=== PATIENT | female | born 1965 | race Caucasian/White ===

== ENCOUNTER 2023-04-25 21:52 | Inpatient (IN) | payer BC ==
[2023-04-25 23:15] LABS: #Monocytes 0.6 thou/uL (0.11-0.59); #Neutrophils 7.4 thou/uL (1.40-6.50); %Basophils 0.3 % (0.0-1.0); %Eosinophils 0.1 % (0.0-10.0); %Lymphocytes 10.7 % (21.0-51.0); %Neutrophils 81.5 % (42.0-75.0); Hematocrit 29.7 % (36.0-47.0); Hemoglobin 10.7 g/dL (12.0-16.0); Mean Corpuscular Hemoglobin 35.5 pg (27.0-31.0); Mean Corpuscular Volume 98.7 fl (78.0-98.0); Mean Platelet Volume 8.7 fL (7.4-10.4); Platelet Count 230 10x3/uL (130-400); RBC Distribution Width 12.8 % (11.5-14.5); Red Blood Cell (RBC) Count 3.01 mill/uL (4.20-5.40); White Blood Cell (WBC) Count 9.1 10x3/uL (4.8-10.8)
[2023-04-25 23:38] LABS: Acetaminophen 17 mcg/mL (10.0-30.0); Alcohol 92.2 mg/dL (Less than 10); Salicylate Less than 8.0 mg/dL (15.0-30.0)
[2023-04-25 23:40] LABS: ALT (SGPT) 12 U/L (8-55); AST (SGOT) 27 U/L (5-34); Alkaline Phosphatase 41 U/L (40-110); Anion Gap 14 mmol/L (10-20); BUN (Urea Nitrogen) 7 mg/dL (9.8-20.1); Bilirubin, Total 0.4 mg/dL (0.2-1.2); Calc. Creatinine Clearance 0 mL/min (70-130); Calcium 9.1 mg/dL (7.8-10.44); Carbon Dioxide 26 mmol/L (22-29); Chloride 88 mmol/L (98-107); Estimated GFR 97; Globulin 2.1 g/dL (2.4-3.5); Glucose 100 mg/dL (70-105); Potassium 3.5 mmol/L (3.5-5.1); Protein, Total 6.1 g/dL (6.0-8.3); Sodium 124 mmol/L (136-145)
[2023-04-26] MEDS ORDERED: Lorazepam 1 MG TAB PO PRN
[2023-04-26] MEDS ORDERED: Ipratropium/Albuterol 3 ML NEB NEB PRN (02:14)
[2023-04-26] MEDS ORDERED: Dextrose 50% Abboject 50 ML SYRINGE SLOW IVP PRN (02:14)
[2023-04-26] MEDS ORDERED: traMADol HCl 50 MG TAB PO PRN (02:14)
[2023-04-26] MEDS ORDERED: Glucagon 1 MG/ML KIT IM PRN (02:14)
[2023-04-26] MEDS ORDERED: hydrALAZINE 20 MG/ML VIAL SLOW IVP PRN (02:14)
[2023-04-26] MEDS ORDERED: Dextrose 5% in Water 1,000 ML IV PRN (02:14)
[2023-04-26 03:26] VITALS: BMI 22.8
[2023-04-26] MEDS: Morphine 2 MG/ML VIAL SLOW IVP PRN ×3 (03:34→15:19)
[2023-04-26] MEDS: Ondansetron PF 4 MG/2 ML Vial IVP PRN ×2 (03:34→15:22)
[2023-04-26] MEDS ORDERED: TETANUS, DIPHTHERIA TOX,ADULT (TDVAX) 0.5 ML VIAL IM ONE (04:00)
[2023-04-26] MEDS ORDERED: levETIRAcetam 500 MG TAB PO SCH ×2 (05:30→21:00)
[2023-04-26] MEDS ORDERED: Lorazepam 2 MG/ML VIAL SLOW IVP PRN (05:32)
[2023-04-26] MEDS ORDERED: Lorazepam 2 MG/ML VIAL IM PRN (06:00)
[2023-04-26] MEDS ORDERED: levETIRAcetam 500 MG/5 ML VIAL SLOW IVP SCH (06:00)
[2023-04-26] MEDS ORDERED: Ondansetron ODT 4 MG TAB PO PRN (06:00)
[2023-04-26] MEDS ORDERED: Lorazepam 1 MG TAB PO SCH (06:00)
[2023-04-26] MEDS: Acetaminophen 325 MG TAB PO SCH ×3 (06:00→16:58)
[2023-04-26] MEDS ORDERED: Electrolyte Replacement Protocol 1 EACH FS PRN (06:00)
[2023-04-26] MEDS: Thiamine HCl 200 MG/2 ML VIAL SLOW IVP SCH (06:34)
[2023-04-26] MEDS ORDERED: Potassium Chloride 20 MEQ TAB PO SCH (08:00)
[2023-04-26] MEDS: Potassium Chloride 20 MEQ in Premix Bag 1 BAG IVPB SCH ×2 (09:50→11:12)
[2023-04-26] MEDS: Sodium Chloride 0.9% 1,000 ML IV SCH ×3 (09:50→20:23)
[2023-04-26] MEDS: Oxazepam 10 MG CAP PO SCH ×2 (09:50→15:52)
[2023-04-26] MEDS: Famotidine/PF 20 mg/2ml Vial SLOW IVP SCH ×2 (09:50→20:23)
[2023-04-26 09:51] LABS: #Monocytes 0.7 thou/uL (0.11-0.59); #Neutrophils 4.1 thou/uL (1.40-6.50); %Basophils 0.4 % (0.0-1.0); %Lymphocytes 12.2 % (21.0-51.0); %Monocytes 12.3 % (0.0-10.0); %Neutrophils 74.9 % (42.0-75.0); Hematocrit 31.2 % (36.0-47.0); Hemoglobin 11.1 g/dL (12.0-16.0); Mean Corpuscular HGB CONC 35.6 g/dL (32.0-36.0); Mean Corpuscular Hemoglobin 35.7 pg (27.0-31.0); Mean Corpuscular Volume 100.3 fl (78.0-98.0); Platelet Count 231 10x3/uL (130-400); RBC Distribution Width 12.9 % (11.5-14.5); Red Blood Cell (RBC) Count 3.11 mill/uL (4.20-5.40); White Blood Cell (WBC) Count 5.5 10x3/uL (4.8-10.8)
[2023-04-26 10:15] LABS: Anion Gap 13 mmol/L (10-20); BUN (Urea Nitrogen) 6 mg/dL (9.8-20.1); Calc. Creatinine Clearance 86 mL/min (70-130); Calcium 9.5 mg/dL (7.8-10.44); Carbon Dioxide 25 mmol/L (22-29); Chloride 93 mmol/L (98-107); Estimated GFR 100; Glucose 98 mg/dL (70-105); Potassium 3.8 mmol/L (3.5-5.1); Sodium 127 mmol/L (136-145)
[2023-04-26] MEDS: Folic Acid 1 MG TAB PO SCH (10:20)
[2023-04-26] MEDS: Multivit, Therapeutic 1 TAB PO SCH (10:20)
[2023-04-26 16:20] LABS: Potassium 4.1 mmol/L (3.5-5.1)
[2023-04-26] MEDS: levETIRAcetam 500 MG/5 ML VIAL SLOW IVP SCH (20:23)
[2023-04-27] MEDS: Oxazepam 10 MG CAP PO SCH ×3 (00:04→16:52)
[2023-04-27] MEDS: Acetaminophen 325 MG TAB PO SCH ×4 (00:04→18:30)
[2023-04-27] MEDS: Sodium Chloride 0.9% 1,000 ML IV SCH ×3 (00:14→20:13)
[2023-04-27 02:46] LABS: #Monocytes 0.6 thou/uL (0.11-0.59); #Neutrophils 2.5 thou/uL (1.40-6.50); %Basophils 0.2 % (0.0-1.0); %Lymphocytes 22.4 % (21.0-51.0); %Monocytes 14.9 % (0.0-10.0); %Neutrophils 62.3 % (42.0-75.0); Hematocrit 29.5 % (36.0-47.0); Hemoglobin 10.2 g/dL (12.0-16.0); Mean Corpuscular HGB CONC 34.6 g/dL (32.0-36.0); Mean Corpuscular Hemoglobin 35.3 pg (27.0-31.0); Mean Corpuscular Volume 102.1 fl (78.0-98.0); Mean Platelet Volume 8.6 fL (7.4-10.4); Platelet Count 192 10x3/uL (130-400); RBC Distribution Width 13.1 % (11.5-14.5); Red Blood Cell (RBC) Count 2.89 mill/uL (4.20-5.40)
[2023-04-27 03:08] LABS: Bilirubin, Direct 0.4 mg/dL (0.1-0.3); Magnesium 1.8 mg/dL (1.6-2.6)
[2023-04-27 03:42] LABS: Anion Gap 12 mmol/L (10-20); BUN (Urea Nitrogen) 6 mg/dL (9.8-20.1); Calc. Creatinine Clearance 90 mL/min (70-130); Calcium 9.3 mg/dL (7.8-10.44); Carbon Dioxide 23 mmol/L (22-29); Chloride 98 mmol/L (98-107); Estimated GFR 101; Glucose 93 mg/dL (70-105); Potassium 4.1 mmol/L (3.5-5.1); Sodium 129 mmol/L (136-145)
[2023-04-27] MEDS: Thiamine HCl 200 MG/2 ML VIAL SLOW IVP SCH (05:12)
[2023-04-27] MEDS ORDERED: Magnesium 2 GM/50 ML(in water) 2 GM in Premix Bag 1 BAG IVPB SCH ×2 (06:00→17:15)
[2023-04-27] MEDS ORDERED: Lorazepam 1 MG TAB PO PRN (06:00)
[2023-04-27] MEDS ORDERED: Lorazepam 1 MG TAB PO SCH (06:00)
[2023-04-27 07:34] LABS: Amphetamine Not Detected (NotDetected); Barbiturates Screen Not Detected (NotDetected); Benzodiazepine Screen Detected (NotDetected); Cocaine Metabolite Screen Not Detected (NotDetected); Methadone Not Detected (NotDetected); Methamphetamine Not Detected (NotDetected); Opiate Screen Detected (NotDetected); Oxycodone Screen Not Detected (NotDetected); Phencyclidine (PCP) Not Detected (NotDetected); THC/Cannabinoid Screen Detected (NotDetected); Tricyclic Screen Not Detected (NotDetected)
[2023-04-27] MEDS: Famotidine/PF 20 mg/2ml Vial SLOW IVP SCH ×2 (08:24→20:12)
[2023-04-27] MEDS: levETIRAcetam 500 MG/5 ML VIAL SLOW IVP SCH ×2 (08:24→20:12)
[2023-04-27] MEDS: Senokot S 8.6-50 MG TAB PER TUBE SCH ×2 (08:25→20:20)
[2023-04-27] MEDS: Folic Acid 1 MG TAB PO SCH (08:25)
[2023-04-27] MEDS: Multivit, Therapeutic 1 TAB PO SCH (08:25)
[2023-04-27 11:35] LABS: Syphilis Antibody Nonreactive (Nonreactive); Syphilis Antibody Index 0.04 S/CO (<1.00 Non-Reactive)
[2023-04-27 13:48] LABS: Anion Gap 10 mmol/L (10-20); BUN (Urea Nitrogen) 5 mg/dL (9.8-20.1); Calc. Creatinine Clearance 87 mL/min (70-130); Calcium 8.9 mg/dL (7.8-10.44); Carbon Dioxide 23 mmol/L (22-29); Chloride 97 mmol/L (98-107); Estimated GFR 101; Glucose 109 mg/dL (70-105); Potassium 3.7 mmol/L (3.5-5.1); Sodium 126 mmol/L (136-145)
[2023-04-27] MEDS ORDERED: Ampicillin/Sulbactam 3 GM in Sodium Chloride 0.9% 100 ML IVPB SCH (14:15)
[2023-04-27] MEDS: Sodium Chloride 1 GM TAB PO SCH (18:30)
[2023-04-27] MEDS: Ampicillin/Sulbactam 3 GM in Sodium Chloride 0.9% 100 ML IVPB SCH (20:12)
[2023-04-27] MEDS: Potassium Chloride 20 MEQ in Premix Bag 1 BAG IVPB SCH ×2 (20:12→20:25)
[2023-04-28] MEDS: Sodium Chloride 1 GM TAB PO SCH ×3 (00:01→17:14)
[2023-04-28] MEDS: Oxazepam 10 MG CAP PO SCH ×3 (00:01→15:43)
[2023-04-28] MEDS: Acetaminophen 325 MG TAB PO SCH ×4 (00:06→17:14)
[2023-04-28] MEDS: Ampicillin/Sulbactam 3 GM in Sodium Chloride 0.9% 100 ML IVPB SCH ×4 (03:26→19:45)
[2023-04-28] MEDS: Sodium Chloride 0.9% 1,000 ML IV SCH ×3 (03:26→17:22)
[2023-04-28] MEDS ORDERED: Lorazepam 1 MG TAB PO PRN (06:00)
[2023-04-28] MEDS ORDERED: Lorazepam 0.5 MG TAB PO SCH (06:00)
[2023-04-28] MEDS: Thiamine HCl 200 MG/2 ML VIAL SLOW IVP SCH (06:21)
[2023-04-28 06:23] LABS: Phosphorus 2.7 mg/dL (2.3-4.7)
[2023-04-28 06:28] LABS: Anion Gap 12 mmol/L (10-20); BUN (Urea Nitrogen) Less than 4 mg/dL (9.8-20.1); Calc. Creatinine Clearance 90 mL/min (70-130); Calcium 9.1 mg/dL (7.8-10.44); Carbon Dioxide 24 mmol/L (22-29); Chloride 98 mmol/L (98-107); Estimated GFR 101; Glucose 96 mg/dL (70-105); Magnesium 2.2 mg/dL (1.6-2.6); Potassium 4.2 mmol/L (3.5-5.1); Sodium 130 mmol/L (136-145)
[2023-04-28] MEDS: Folic Acid 1 MG TAB PO SCH (09:33)
[2023-04-28] MEDS: Multivit, Therapeutic 1 TAB PO SCH (09:34)
[2023-04-28] MEDS: Senokot S 8.6-50 MG TAB PER TUBE SCH ×2 (09:34→20:45)
[2023-04-28] MEDS: Famotidine/PF 20 mg/2ml Vial SLOW IVP SCH ×2 (09:39→19:45)
[2023-04-28] MEDS: levETIRAcetam 500 MG/5 ML VIAL SLOW IVP SCH ×2 (09:39→19:45)
[2023-04-28] MEDS ORDERED: Midazolam HCl 2 mg/2 ml Vial ONE ×2 (12:33→12:47)
[2023-04-28] MEDS ORDERED: Oxymetazoline HCl 0.05% (30 ML BOT) ONE (12:47)
[2023-04-28] MEDS ORDERED: EPINEPHrine 1 MG/ML AMP ONE (13:08)
[2023-04-28] MEDS ORDERED: Lidocaine 1% (PF) 30 ML VIAL ONE (13:08)
[2023-04-28] MEDS ORDERED: Chlorhexidine Gluconate 15 ML UDCUP SSP ONE (13:09)
[2023-04-28] MEDS ORDERED: Fentanyl 250 MCG/5 ML VIAL ONE (13:40)
[2023-04-28] MEDS ORDERED: Ondansetron PF 4 MG/2 ML Vial ONE (13:41)
[2023-04-28] MEDS ORDERED: NEOSTIGMINE 3 MG/3 ML SYR 3 MG/3 ML SYRINGE ONE (13:41)
[2023-04-28] MEDS ORDERED: Lidocaine 1% PF 5 ML VIAL ONE (13:41)
[2023-04-28] MEDS ORDERED: Rocuronium Bromide 10 MG/ML (10ML VIAL) ONE (13:41)
[2023-04-28] MEDS ORDERED: Ketorolac Tromethamine 30 MG/ML VIAL ONE (13:41)
[2023-04-28] MEDS ORDERED: PROPOFOL 200 MG/20 ML VIAL ONE (13:41)
[2023-04-28] MEDS ORDERED: Dexamethasone 20 MG/5 ML VIAL ONE (13:41)
[2023-04-28] MEDS ORDERED: Glycopyrrolate 0.2 MG/ML 5 ML SYRINGE ONE (13:41)
[2023-04-28] MEDS ORDERED: Bacitracin Zinc Ointment 30 gm TUBE ONE (14:49)
[2023-04-28] MEDS ORDERED: Ondansetron HCl/PF 4 MG/2 ML Vial IVP PRN (15:14)
[2023-04-28] MEDS ORDERED: PACU-Morphine 4MG/ML VIAL SLOW IVP PRN (15:14)
[2023-04-28] MEDS ORDERED: HYDROmorphone 2 MG/ML VIAL SLOW IVP PRN (15:14)
[2023-04-28] MEDS ORDERED: Morphine Sulfate 2 MG/ML SYRINGE SLOW IVP PRN (15:14)
[2023-04-28] MEDS ORDERED: Promethazine HCl 25 MG/ML VIAL IM PRN (15:14)
[2023-04-28] MEDS ORDERED: hydrALAZINE 20 MG/ML VIAL ONE (15:15)
[2023-04-28] MEDS: Morphine 2 MG/ML VIAL SLOW IVP PRN (17:17)
[2023-04-29] MEDS: Oxazepam 10 MG CAP PO SCH ×2 (00:34→09:29)
[2023-04-29] MEDS: Sodium Chloride 1 GM TAB PO SCH ×2 (00:34→09:32)
[2023-04-29] MEDS: Acetaminophen 325 MG TAB PO SCH ×3 (00:43→11:54)
[2023-04-29] MEDS: Ampicillin/Sulbactam 3 GM in Sodium Chloride 0.9% 100 ML IVPB SCH ×2 (02:21→09:28)
[2023-04-29] MEDS: Sodium Chloride 0.9% 1,000 ML IV SCH ×2 (04:49→10:17)
[2023-04-29] MEDS ORDERED: Lorazepam 0.5 MG TAB PO PRN (06:00)
[2023-04-29 07:25] LABS: Anion Gap 14 mmol/L (10-20); BUN (Urea Nitrogen) 10 mg/dL (9.8-20.1); Calc. Creatinine Clearance 75 mL/min (70-130); Calcium 9.4 mg/dL (7.8-10.44); Carbon Dioxide 22 mmol/L (22-29); Chloride 97 mmol/L (98-107); Estimated GFR 85; Glucose 96 mg/dL (70-105); Magnesium 2.1 mg/dL (1.6-2.6); Potassium 4.5 mmol/L (3.5-5.1); Sodium 128 mmol/L (136-145)
[2023-04-29] MEDS ORDERED: Thiamine 100 MG TAB PO SCH (09:00)
[2023-04-29] MEDS: Famotidine/PF 20 mg/2ml Vial SLOW IVP SCH (09:29)
[2023-04-29] MEDS: levETIRAcetam 500 MG/5 ML VIAL SLOW IVP SCH (09:31)
[2023-04-29] MEDS: Multivit, Therapeutic 1 TAB PO SCH ×2 (09:33→09:41)
[2023-04-29] MEDS: Folic Acid 1 MG TAB PO SCH (09:33)
[2023-04-29] MEDS: Senokot S 8.6-50 MG TAB PER TUBE SCH (09:39)
[2023-04-29] MEDS ORDERED: Chlorhexidine Gluconate 15 ML UDCUP SSP SCH ×2 (14:30→21:00)
[2023-04-29] MEDS ORDERED: AMOXicillin 250 MG CAP PO SCH (15:00)
[2023-04-29 15:11] VITALS: BP 143/85; TEMP 97.4
== END 2023-04-29 14:58 | disposition home or self-care (01) | DRG 137 ==
LOC: ERS 21:52 → SURG A 04-26 02:14 → CCU 04-26 07:56 → T4-A 04-26 22:50
PROVIDERS: ADMIT Surgery; ATTEND Surgery
PROC: 4A00X4Z Measurement of Central Nervous Electrical Activity, External Approach (ICD-10-PCS; principal; 2023-04-26)
PROC: 0NSVXZZ Reposition Left Mandible, External Approach (ICD-10-PCS; 2023-04-28)
PROC: 0CQ10ZZ Repair Lower Lip, Open Approach (ICD-10-PCS; 2023-04-28)
PROC: 0NSR34Z Reposition Maxilla with Internal Fixation Device, Percutaneous Approach (ICD-10-PCS; 2023-04-28)
DX: S02.611A Fracture of condylar process of right mandible, initial encounter for closed fracture (principal); E87.1 Hypo-osmolality and hyponatremia; S02.672A Fracture of alveolus of left mandible, initial encounter for closed fracture; W18.30XA Fall on same level, unspecified, initial encounter; Z90.710 Acquired absence of both cervix and uterus; E87.6 Hypokalemia; F10.129 Alcohol abuse with intoxication, unspecified; R56.9 Unspecified convulsions; S01.511A Laceration without foreign body of lip, initial encounter; I10 Essential (primary) hypertension; G47.00 Insomnia, unspecified; F17.210 Nicotine dependence, cigarettes, uncomplicated; Y90.4 Blood alcohol level of 80-99 mg/100 ml
CPT/HCPCS: 36415; 36416; 70486; 71045; 80048; 80053; 80306; 80307; 82248; 83735; 84100; 84207; 85025; 86780; 90714; 95712; 95819; 95957; 99284; G0390; J0171; J0295; J0360; J1100; J1650; J1885; J1953; J2001; J2250; J2272; J2405; J2704; J3010; J3411; J3475; J3480; J3490; J7050; S0028

== ENCOUNTER 2025-05-14 08:27 | Outpatient (CLI) | payer BC | END 2025-05-14 08:28 | disposition home or self-care (01) | LOC: ULT 08:27 | DX: R10.11 Right upper quadrant pain (principal); K76.0 Fatty (change of) liver, not elsewhere classified; K86.89 Other specified diseases of pancreas | CPT/HCPCS: 76705 ==